=== PATIENT | female | born 1985 | race American Indian/Alaskan Native ===

== ENCOUNTER 2019-04-04 19:43 | Emergency (ER) | payer OTHER ==
[2019-04-04 20:50] VITALS: BP 189/88; PULSE 88
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
== END 2019-04-04 21:54 | disposition home or self-care (01) ==
LOC: DL.ED 19:43
DX: S89.91XA Unspecified injury of right lower leg, initial encounter (principal); I10 Essential (primary) hypertension; E66.9 Obesity, unspecified; Z79.899 Other long term (current) drug therapy; Z68.44 Body mass index [BMI] 60.0-69.9, adult; X50.1XXA Overexertion from prolonged static or awkward postures, initial encounter; Y93.E5 Activity, floor mopping and cleaning
CPT/HCPCS: 73562-RT; 99282; 99283-25

== ENCOUNTER 2020-07-23 16:41 | Emergency (ER) | payer MEDICAID ==
[2020-07-23] MEDS ORDERED: Sodium Chloride 0.9% 10 ML Syringe FLUSH PRN (17:01)
[2020-07-23 17:47] LABS: ANION GAP 12.6 mEq/L (7-13); CHLORIDE,CL 100 mmol/L (98-107); SODIUM,NA 138 mmol/L (136-145)
[2020-07-23 18:14] LABS: PTT,PARTIAL THROMBOPLSTIN TIME 24.2 SEC (22.0-34.0)
[2020-07-23] MEDS ORDERED: Iopamidol 755 Mg/ML 100 ML Bottle IVPUSH ONE (18:15)
--- NOTE | 2020-07-23 18:46 | EDM.PDOC ---
Scribed by Bridgette Tineo 07/23/20 1718 for Juan A Snyder MD <Juan A Snyder - Last Filed: 07/23/20 18:43> ED HPI GENERAL MEDICAL PROBLEM - General Chief Complaint: Respiratory Problem Stated Complaint: SHORTNESS OF BREATH, DIZZY Time Seen by Provider: 07/23/20 16:55 Source of Information: Reports: Patient, RN, RN Notes Reviewed History Limitations: Reports: No Limitations - History of Present Illness INITIAL COMMENTS - FREE TEXT/NARRATIVE: Patient presents to ED by POV with complaint of shortness of breath and dizziness on and off all day. Pt has been busy all day helping with arrangements, and other errands. Her shortness of breath began this morning and has increased as the day went on. Pt called her oncologist and was advised to come to the ER due to concern for PE. Patient is taking chemo for breast cancer, but has tolerated the chemo well. She has had similar dizziness in the past caused by her BP medication but it did not cause shortness of breath. Denies cough, fever, edema, palpitations, syncope, or chest pain. Onset: Today Duration: Getting Worse Location: Reports: Chest Severity: Severe Improves with: Reports: None Worsens with: Reports: None Associated Symptoms: Reports: No Other Symptoms - Related Data Allergies Allergy/AdvReac Type Severity Reaction Status Date / Time lisinopril Allergy Itching Verified 07/23/20 16:54 tramadol Allergy Diarrhea Verified 07/23/20 16:54 Home Meds: Home Meds Losartan [Cozaar] 100 mg PO DAILY 04/04/19 [History] Chlorthalidone 25 mg PO DAILY 05/22/20 [History] Doxycycline Monohydrate 100 mg PO BID 05/22/20 [History] Ferrous Sulfate 325 mg PO DAILY 05/22/20 [History] Multivitamin 1 each PO DAILY 05/22/20 [History] metFORMIN [Glucophage] 1,000 mg PO BIDMEALS 05/22/20 [History] Past Medical History - Past Health History Medical/Surgical History: Denies Medical/Surgical History HEENT History: Reports: None Cardiovascular History: Reports: Hypertension Respiratory History: Reports: None Gastrointestinal History: Reports: Diverticulosis, GERD, Hemorrhoids Genitourinary History: Reports: None 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: Polycystic Ovaries, Other ARCHITECTURAL TECHNOLOGIST History: ASCUS ON PAP SMEAR; OVARIAN CYST Musculoskeletal History: Reports: Fracture Other Musculoskeletal History: right knee @ age 15 (surgical repair) Neurological History: Reports: None Psychiatric History: Reports: None Endocrine/Metabolic History: Reports: Diabetes, Type II, Obesity/BMI 30+ Hematologic History: Reports: None, Anemia, Blood Transfusion(s) Immunologic History: Reports: None Oncologic (Cancer) History: Reports: Breast Dermatologic History: Reports: None - Infectious Disease History Infectious Disease History: Reports: Chicken Pox - Past Surgical History Head Surgeries/Procedures: Reports: None HEENT Surgical History: Reports: Tonsillectomy Cardiovascular Surgical History: Reports: None GI Surgical History: Reports: None Female Surgical History: Reports: Mastectomy Musculoskeletal Surgical History: Reports: Arthroscopic Knee Other Musculoskeletal Surgeries/Procedures:: right knee Oncologic Surgical History: Reports: Mastectomy Social & Family History - Family History Family Medical History: No Pertinent Family History - Caffeine Use Caffeine Use: Reports: Soda - Sexual History Sexual History: Reports: Sexually Active - Living Situation & Occupation Living situation: Reports: , with Family Occupation: Employed ED ROS GENERAL - Review of Systems Review Of Systems: Comprehensive ROS is negative, except as noted in HPI. ED EXAM, GENERAL - Physical Exam Exam: See Below Exam Limited By: No Limitations General Appearance: Alert, No Apparent Distress, Anxious, Obese Eye Exam: Bilateral Eye: EOMI, Normal Inspection, PERRL Nose: Normal Inspection Throat/Mouth: Normal Lips, Normal Voice, No Airway Compromise Head: Atraumatic, Normocephalic Neck: Normal Inspection, Full Range of Motion Respiratory/Chest: No Respiratory Distress, Lungs Clear, Normal Breath Sounds, No Accessory Muscle Use, Chest Non-Tender Cardiovascular: Regular Rate, Rhythm, Tachycardia GI/Abdominal: Normal Bowel Sounds, Soft, Non-Tender, Other (Benign obese abdomen) Back Exam: Normal Inspection Extremities: Normal Range of Motion, Normal Capillary Refill, Pedal Edema (Trace), Other (Mild left calf tenderness). No: Tammy's Sign Neurological: Alert, Oriented, CN II-XII Intact, Normal Cognition, Normal Gait, No Motor/Sensory Deficits Psychiatric: Anxious Skin Exam: Warm, Dry, Intact, Normal Color, No Rash #1 Interpretation EKG Date: 07/23/20 Time: 17:32 Rhythm: Other (sinus rhythm) Rate (Beats/Min): 92 [place]: Normal P-Wave: Present QRS: Wide (nonspecicic IVCD, abnormal R wave progression late transition.) ST-T: Normal QT: Prolonged (borderline) Course - Re-Assessments/Exams Free Text/Narrative Re-Assessment/Exam: 07/23/20 19:00 Care of pt transferred to Juany Vanessa [facility] ASSISTANT at shift change. Departure - Departure Disposition: DC/Tfer to [facility] Clinical Impression: Shortness of breath Breast cancer in female Qualifiers: Breast location: unspecified site of breast Estrogen receptor status: unspecified Laterality: right Qualified Code(s): C50.911 - Malignant neoplasm of unspecified site of right female breast History of mastectomy Qualifiers: Laterality: right Qualified Code(s): Z90.11 - Acquired absence of right breast and nipple - Discharge Information Forms: ED Department Discharge, Interfacility Transfer EMTALA Sepsis Event Note (ED) - Evaluation Sepsis Screening Result: No Definite Risk <Juany Mendez - Last Filed: 07/23/20 20:34> Course - Vital Signs Last Recorded V/S: Last Vital Signs Temp 97.0 F 07/23/20 16:55 Pulse 100 07/23/20 16:55 Resp 22 H 07/23/20 16:55 BP 121/79 07/23/20 16:55 Pulse Ox 98 07/23/20 16:55 - Orders/Labs/Meds Orders: Active Orders 24 hr Category Date Time Status EKG 12 Lead [EKG Documentation Completion] [RC] STAT Care 07/23/20 17:01 Active Peripheral IV Care [RC] . DIRECTED Care 07/23/20 17:01 Active Chest w Cont [CT] Stat Exams 07/23/20 18:15 Taken Sodium Chloride 0.9% [Saline Flush] Med 07/23/20 17:01 Active 10 ml FLUSH ASDIRECTED PRN Peripheral IV Insertion Adult [OM.PC] Stat Oth 07/23/20 17:01 Ordered Medication Orders Sodium Chloride (Sodium Chloride 0.9% 10 Ml Syringe) 10 ml FLUSH ASDIRECTED PRN PRN Reason: Keep Vein Open Last Admin: 07/23/20 19:36 Dose: 10 ml Documented by: [id number] Labs: Laboratory Tests 07/23/20 07/23/20 07/23/20 Range/Units 17:16 17:16 17:16 WBC 9.6 (5.0-10.0) 10^3/uL RBC 4.65 (4.2-5.4) 10^6/uL Hgb 12.4 D (12.0-16.0) g/dL Hct 38.7 (37.0-47.0) % MCV 83.2 D (80-100) fL MCH 26.7 L (27.0-34.0) pg MCHC 32.0 L (33.0-35.0) g/dL Plt Count 238 (150-450) 10^3/uL Neut % (Auto) 65.9 (42.2-75.2) % Lymph % (Auto) 23.3 (20.5-50.1) % [place] % (Auto) 5.4 (2-8) % Eos % (Auto) 5.0 H (1.0-3.0) % Baso % (Auto) 0.4 (0.0-1.0) % PT 10.6 (9.0-12.0) SEC INR 1.1 (0.9-1.2) APTT 24.2 (22.0-34.0) SEC Sodium 138 (136-145) mmol/L Potassium 3.6 (3.5-5.1) mmol/L Chloride 100 (98-107) mmol/L Carbon Dioxide 29 (21-32) mmol/L Anion Gap 12.6 (7-13) mEq/L BUN 15 (7-18) mg/dL Creatinine 0.96 (0.55-1.02) mg/dL Est Cr Clr Drug Dosing 78.78 mL/min Estimated GFR (MDRD) > 60 BUN/Creatinine Ratio 15.6 (No establ ref range) Glucose 230 H (70-99) mg/dL Calcium 9.0 (8.5-10.1) mg/dL Total Bilirubin 0.4 (0.2-1.0) mg/dL AST 46 H (15-37) U/L ALT 101 H (14-59) U/L Alkaline Phosphatase 94 (46-116) U/L Troponin I High Sens 13 (<=51) pg/mL B-Natriuretic Peptide < 5 (0-100) pg/ml Total Protein 8.0 (6.4-8.2) g/dL Albumin 3.6 (3.4-5.0) g/dL Globulin 4.4 Albumin/Globulin Ratio 0.8 Meds: Medications Generic Name Dose Route Start Last Admin Trade Name Freq PRN Reason Stop Dose Admin Sodium Chloride 10 ml 07/23/20 17:01 07/23/20 19:36 Sodium Chloride 0.9% 10 Ml Syringe FLUSH 10 ml ASDIRECTED PRN Administration Keep Vein Open Discontinued Medications Generic Name Dose Route Start Last Admin Trade Name Freq PRN Reason Stop Dose Admin Iopamidol 100 ml 07/23/20 18:15 07/23/20 18:47 Iopamidol 755 Mg/Ml 100 Ml Bottle IVPUSH 07/23/20 18:16 100 ml ONETIME ONE Administration Departure - Departure Time of Disposition: 20:32 Condition: Good - Discharge Information *PRESCRIPTION DRUG MONITORING PROGRAM REVIEWED*: Not Applicable *COPY OF PRESCRIPTION DRUG MONITORING REPORT IN PATIENT HELADIO: Not Applicable Sepsis Event Note (ED) - Focused Exam Vital Signs: Vital Signs Temp Pulse Resp BP Pulse Ox 07/23/20 16:55 97.0 F 100 22 H 121/79 98 I have read and agree with the documentation that has been completed regarding this visit. By signing this record, I attest that the documentation was completed in my physical presence and is an accurate record of the encounter.
[2020-07-23 20:37] VITALS: BP 150/73; PULSE 90
--- NOTE | 2020-07-23 20:49 | CT ---
PROCEDURE INFORMATION: Exam: CT Chest With Contrast; Diagnostic Exam date and time: 07/23/2020 7:14 PM Age: 35 years old Clinical indication: Shortness of breath; Additional info: Shortness of breath, p. E. Study, HX breast CA TECHNIQUE: Imaging protocol: Diagnostic computed tomography of the chest with contrast. Radiation optimization: All CT scans at this facility use at least one of these dose optimization techniques: automated exposure control; mA and/or kV adjustment per patient size (includes targeted exams where dose is matched to clinical indication); or iterative reconstruction. Contrast material: [id number]; Contrast volume: 87 ml; Contrast route: INTRAVENOUS (IV); COMPARISON: No relevant prior studies available. FINDINGS: Limitations: Pulmonary arterial opacification is nondiagnostic in regards to pulmonary embolism evaluation. Tubes, catheters and devices: An infusion port has been placed by the left jugular approach. The catheter tip lies in the superior vena cava. Lungs: The lungs are clear. Pleural spaces: No pleural effusion. No pneumothorax. Heart: Mild cardiomegaly. Aorta: The thoracic aorta is normal. No aneurysm. No dissection. Lymph nodes: There is no evidence of lymphadenopathy. Liver: There is a diffuse decrease in hepatic parenchymal density, consistent with severe hepatic steatosis. Adrenal glands: The adrenal glands are normal. Bones/joints: No acute bony findings are identified. Soft tissues: Postoperative change right breast right anterior chest wall. No axillary adenopathy. IMPRESSION: 1. No acute findings. 2. Nondiagnostic evaluation regards to pulmonary embolism.
== END 2020-07-23 21:00 ==
LOC: DL.ED 16:41
DX: R06.02 Shortness of breath (principal); C50.911 Malignant neoplasm of unspecified site of right female breast; Z90.11 Acquired absence of right breast and nipple; E11.9 Type 2 diabetes mellitus without complications; E66.9 Obesity, unspecified; I10 Essential (primary) hypertension; Z68.30 Body mass index [BMI] 30.0-30.9, adult; Z88.5 Allergy status to narcotic agent; Z88.8 Allergy status to other drugs, medicaments and biological substances; Z79.84 Long term (current) use of oral hypoglycemic drugs; Z79.899 Other long term (current) drug therapy
CPT/HCPCS: 36415; 71260; 80053; 83880; 84484; 85025; 85610; 85730; 93005; 93010; 99284; 99285; Q9967

== ENCOUNTER 2021-09-01 16:41 | Emergency (ER) | payer MEDICAID, OTHER ==
[2021-09-01] MEDS: Sodium Chloride 0.9% 1,000 ML IV ONE ×2 (17:22→19:13)
[2021-09-01] MEDS: Sodium Chloride 0.9% 10 ML Syringe FLUSH PRN (17:22)
[2021-09-01] MEDS: Potassium Chloride 20 MEQ in Premix Bag 1 BAG IV ONE (19:13)
[2021-09-01 20:11] VITALS: PULSE 80
[2021-09-01 21:42] VITALS: BP 120/98
== END 2021-09-01 21:35 | disposition home or self-care (01) ==
LOC: DL.ED 16:41
DX: K52.9 Noninfective gastroenteritis and colitis, unspecified (principal); E86.0 Dehydration; E87.6 Hypokalemia; I10 Essential (primary) hypertension; E11.9 Type 2 diabetes mellitus without complications; K21.9 Gastro-esophageal reflux disease without esophagitis; E66.9 Obesity, unspecified; Z68.43 Body mass index [BMI] 50.0-59.9, adult; Z88.5 Allergy status to narcotic agent; Z88.8 Allergy status to other drugs, medicaments and biological substances; Z79.899 Other long term (current) drug therapy; Z79.4 Long term (current) use of insulin
CPT/HCPCS: 36415; 80053; 81001; 82150; 82947; 83605; 83690; 83735; 85025; 86140; 96361; 96365; 96366; 99284; J3480; J3490; J7030

== ENCOUNTER 2023-04-14 13:42 | Emergency (ER) | payer BC, MEDICAID, OTHER ==
[2023-04-14 14:12] LABS: BASOPHILS PERCENT AUTO 0.1 % (0.0-1.0); HEMATOCRIT 44.1 % (37.0-47.0); HEMOGLOBIN 14.7 g/dL (12.0-16.0); LYMPHOCYTES PERCENT AUTO 8.3 % (20.5-50.1); MEAN CORPUSCULAR HEMOGLOBIN 28.6 pg (27.0-34.0); MEAN CORPUSCULAR HGB CONC 33.3 g/dL (33.0-35.0); MEAN CORPUSCULAR VOLUME 85.8 fL (80-100); NEUTROPHILS PERCENT AUTO 82.6 % (42.2-75.2); PLATELET COUNT,PLT 239 10^3/uL (150-450); RED BLOOD CELL COUNT 5.14 10^6/uL (4.2-5.4); WHITE BLOOD CELL COUNT,WBC 10.6 10^3/uL (5.0-10.0)
[2023-04-14 14:34] LABS: A/G RATIO 0.9; ALANINE AMINOTRANSFERASE,ALT 61 U/L (14-59); ALBUMIN 3.8 g/dL (3.4-5.0); ALKALINE PHOSPHATASE 99 U/L (46-116); ANION GAP 10.7 mEq/L (7-13); ASPARTATE AMNIOTRANSFERASE,AST 25 U/L (15-37); BILIRUBIN TOTAL 0.4 mg/dL (0.2-1.0); BLOOD UREA NITROGEN,BUN 15 mg/dL (7-18); BUN/CREATININE RATIO 20.8 (No establ ref range); CALCIUM 8.8 mg/dL (8.5-10.1); CARBON DIOXIDE,CO2 28 mmol/L (21-32); CHLORIDE,CL 102 mmol/L (98-107); CREATININE 0.72 mg/dL (0.55-1.02); EST CRCL DRUG DOSING (CG) 102.01 mL/min; GLUCOSE RANDOM 139 mg/dL (70-99); POTASSIUM,K 3.7 mmol/L (3.5-5.1); PROTEIN TOTAL,TP 8.2 g/dL (6.4-8.2); SODIUM,NA 137 mmol/L (136-145)
[2023-04-14 14:35] VITALS: BP 147/86; PULSE 96
[2023-04-14 14:35] LABS: ESTIMATED GFR 109 mL/min (>=60)
[2023-04-14] MEDS: Sodium Chloride 0.9% 10 ML Syringe FLUSH PRN (14:41)
[2023-04-14] MEDS: Aspirin 81 MG Tab.Chew PO ONE (14:45)
[2023-04-14] MEDS: GI Cocktail Oral Solution 30 ML PO ONE (14:45)
[2023-04-14 15:11] LABS: CORONAVIRUS COVID-19 NAA NEGATIVE (NEGATIVE); INFLUENZA A NAA NEGATIVE (NEGATIVE); INFLUENZA B NAA NEGATIVE (NEGATIVE); RESPIRATORY SYNCYTIAL VIR NAA NEGATIVE (NEGATIVE)
== END 2023-04-14 16:15 | disposition home or self-care (01) ==
LOC: DL.ED 13:42
DX: R07.9 Chest pain, unspecified (principal); I10 Essential (primary) hypertension; E11.9 Type 2 diabetes mellitus without complications; E66.9 Obesity, unspecified; Z68.43 Body mass index [BMI] 50.0-59.9, adult; Z86.16 Personal history of COVID-19; Z79.4 Long term (current) use of insulin; Z79.84 Long term (current) use of oral hypoglycemic drugs; Z79.899 Other long term (current) drug therapy; Z88.8 Allergy status to other drugs, medicaments and biological substances; Z88.5 Allergy status to narcotic agent
CPT/HCPCS: 0241U; 36415; 71045; 80053; 84484; 85025; 85379; 93005; 93010; 99284; 99285; A9270-GY; J3490